=== PATIENT | male | born 1985 | race Caucasian/White ===

== ENCOUNTER 2018-03-18 05:10 | Emergency (ER) | payer SELFPAY ==
[~2018-03-18] VITALS: Ht 177.8 cm; Wt 83.1 kg
[2018-03-18 05:12] VITALS: Ht 177.8 cm; Wt 83.1 kg
[2018-03-18] MEDS ORDERED: SOD CHLORIDE 0.9% 830 ML IV ONE (05:30)
[2018-03-18] MEDS ORDERED: SOD CHLORIDE 0.9% 1,000 ML IV STA (06:17)
[2018-03-18] MEDS ORDERED: INSULIN LISPRO 100 UNIT/ML VIAL SC ONE (06:30)
[2018-03-18] MEDS ORDERED: HYDROmorphONE 1 MG/ML SYG IV STA ×2 (07:11→10:04)
[2018-03-18] MEDS ORDERED: ONDANSETRON 4 MG INJ IV STA ×2 (07:11→10:04)
[2018-03-18] MEDS ORDERED: INSU100C SQ (07:42)
[2018-03-18] MEDS ORDERED: ESCI10TA PO (07:43)
[2018-03-18] MEDS ORDERED: BUSP10TA2 PO (07:43)
[2018-03-18] MEDS ORDERED: LANT3I SC (07:43)
[2018-03-18] MEDS ORDERED: LIPA1CAP4 PO (07:43)
[2018-03-18] MEDS ORDERED: QUET300T2 PO (07:44)
[2018-03-18] MEDS ORDERED: ZOLP10TA PO (07:44)
[2018-03-18] MEDS ORDERED: SOD CHLORIDE 0.9% 100 ML ONE (07:45)
[2018-03-18] MEDS ORDERED: IOHEXOL 300MG/ML 150 ML BTL ONE (07:45)
[2018-03-18] MEDS ORDERED: HYDR-3980 PO (10:58)
[2018-03-18 11:01] VITALS: BP 145/67; PULSE 104; RESP 17
--- NOTE | 2018-04-08 20:35 | ERD ---
ER Documentation Chief Complaint Chief Complaint ABD PAIN, NO N/V/D/C;TODAY ; HYPERGLYCEMIA 500 AT HOME; TOOK 10 U INSULIN HPI This is a 32-year-old male who is diabetic and has not taken his insulin yesterday but did take some prior to arrival. He says his blood sugar was 500 house. He said he woke up with some periumbilical pain that is crampy but no nausea vomiting or diarrhea no recent trauma or illness. Patient has a history of splenectomy with partial pancreas removal. No back pain hematuria. Patient says is not very good at taking his insulin and frequently forgets ROS All systems reviewed and are negative except as per history of present illness. Medications Home Meds Active Scripts Hydrocodone/Acetaminophen ([place] 10-325 Tablet) 1 Each Tablet, 1 TAB PO Q6H PRN for PAIN, #7 TAB Prov:ADELINA ATKINS DO 03/18/18 Reported Medications Zolpidem Tartrate* (Ambien*) 10 Mg Tablet, 10 MG PO QHS PRN for INSOMNIA, TAB 03/18/18 Quetiapine Fumarate* (Seroquel*) 300 Mg Tablet, 300 MG PO HS, TAB 03/18/18 Buspirone Hcl* (Buspirone Hcl*) 10 Mg Tab, 10 MG PO BID, TAB 03/18/18 Escitalopram Oxalate* (Lexapro*) 10 Mg Tablet, 10 MG PO DAILY, #30 TAB 03/18/18 Dnaoui-Ydmbsfas-Oquzvqc* (Naheed DR* 12,000) 12,000 L-38,000-60,000 Unit Capsule.dr, 1 CAP PO WITH MEALS, CAP 03/18/18 Insulin Glargine* (Lantus*) 100 Unit/Ml Soln, 20 UNIT SC BID, #1 VIAL 03/18/18 Insulin Lispro (Humalog) 100 Unit/1 Ml Cartridge, 2-10 UNIT SQ AC A, EA 03/18/18 Allergies Allergies: Coded Allergies: metoclopramide (Verified Allergy, Unknown, 03/18/18) piperacillin (Verified Allergy, Unknown, 03/18/18) tazobactam (Verified Allergy, Unknown, 03/18/18) PMhx/Soc History of Surgery: Yes (Gall bladder, Splenectomy, partial pancreas, Laminectomy L4-5) Anesthesia Reaction: No Hx Neurological Disorder: No Hx Respiratory Disorders: No Hx Cardiac Disorders: No Hx Psychiatric Problems: Yes (Major Depressive Disorder w/Hx of SI) Hx Miscellaneous Medical Probl: Yes (DM) Hx Alcohol Use: No Hx Substance Use: Yes (Quit Meth x3 2014) Hx Tobacco Use: Yes Smoking Status: Current every day smoker FmHx Family History: No coronary disease Physical Exam Physical Exam Const: Well-developed, well-nourished Head: Atraumatic, normocephalic Eyes: Normal Conjunctiva, PERRLA, EOMI, normal sclera, no nystagmus ENT: Normal External Ears, Nose and Mouth, moist mucus membranes. Neck: Full range of motion. No meningismus, no lymphadenopathy. Resp: Clear to auscultation bilaterally, no wheezing, rhonchi, rales Cardio: Regular rate and rhythm, no murmurs, S1 S2 present Abd: Soft, mild periumbilical tenderness, non distended. Normal bowel sounds, no guarding or rebound, no pulsitile abdominal masses or bruits Skin: No petechiae or rashes, no ecchymosis , no maculopapular rash Back: No midline or flank tenderness Ext: No cyanosis, or edema, FROM x 4, normal inspection, neurovascularly intact x 4 Neur: Awake and alert, STR 5/5 x 4, sensation intact x 4, no focal findings, cerebellum intact Psych: Normal Mood and Affect Results 24 hrs Laboratory Tests Test 03/18/18 05:18 03/18/18 05:22 03/18/18 05:30 03/18/18 05:45 Bedside Glucose 470 mg/dL White Blood 7.7 10^3/ul Count Red Blood Count 3.55 10^6/ul Hemoglobin 8.9 g/dl Hematocrit 27.5 % Mean Corpuscular 77.5 fl Volume Mean Corpuscular 25.1 pg Hemoglobin Mean Corpuscular 32.4 g/dl Hemoglobin Marisa nt Red Cell 19.2 % Distribution Width Platelet Count 564 10^3/UL Mean Platelet 9.1 fl Volume Immature 0.400 % Granulocytes % Neutrophils % 70.8 % Lymphocytes % 18.8 % Monocytes % 8.0 % Eosinophils % 1.2 % Basophils % 0.8 % Nucleated Red 0.0 /100WBC Blood Cells % Immature 0.030 10^3/ul Granulocytes # Neutrophils # 5.4 10^3/ul Lymphocytes # 1.4 10^3/ul Monocytes # 0.6 10^3/ul Eosinophils # 0.1 10^3/ul Basophils # 0.1 10^3/ul Nucleated Red 0.0 10^3/ul Blood Cells # Blood Gas Blood venous Specimen Source Arterial Blood 03/18/2018 7:31: Date Drawn 26 AM Arterial Blood VENOUS LINE Gas Puncture Site Kirill Test N/A Venous Blood pH 7.423 Venous Blood 46.4 mmHG pCO2 (Temp Corrected) Venous Blood pO2 39.0 mmHG (Temp Corrected) Venous Blood 29.6 mmol/L HCO3 Venous Blood 72.6 mmHG Oxygen Saturation Venous Blood 4.6 mmol/L Base Excess Venous Blood 10.0 g/dl Total Hemoglobin Venous Blood 70.6 % Oxyhemoglobin Venous Blood 0.3 % Methemoglobin Carboxyhemoglobi 2.5 % n Blood Gas 37.0 C Temperature Blood Gas Actual 20 Respiration Rate Blood Gas ROOM AIR Modality FiO2 21.0 % Blood Gas JUAN PABLO RT Notified Whom Blood Gas 03/18/2018 7:40: Notified Time 27 AM Sodium Level 134 mmol/L Potassium Level 4.9 mmol/L Chloride Level 92 mmol/L Carbon Dioxide 27 mmol/L Level Anion Gap 15 Blood Urea 11 mg/dl Nitrogen Creatinine 0.63 mg/dl Est Glomerular > 60 mL/min Filtrat Rate mL/min Glucose Level 527 mg/dl Calcium Level 9.7 mg/dl Phosphorus Level 3.8 mg/dl Magnesium Level 1.7 mg/dl Urine Color COLORLESS Urine Clarity CLEAR Urine pH 6.0 Urine Specific 1.018 [place] Urine Ketones NEGATIVE mg/dL Urine Nitrite NEGATIVE mg/dL Urine Bilirubin NEGATIVE mg/dL Urine NEGATIVE mg/dL Urobilinogen Urine Leukocyte NEGATIVE Norah/ul Esterase Urine 2 /HPF Microscopic RBC Urine 0 /HPF Microscopic WBC Urine Hemoglobin 1+ mg/dL Urine Glucose 3+ mg/dL Urine Total NEGATIVE mg/dl Protein Test 03/18/18 06:49 Bedside Glucose 292 mg/dL Current Medications Medications Dose Sig/[place] Start Time Status Last (Trade) Ordered Route PRN Stop Time Admin Dose Reason Admin Sodium 830 ml @ ONCE ONCE 03/18/18 DC 03/18/18 Chloride 830 mls/hr IV 05:30 06:07 03/18/18 06:29 Sodium 1,000 ml @ Q1H STAT 03/18/18 DC 03/18/18 Chloride 1,000 mls/hr IV 06:17 06:52 03/18/18 07:16 Insulin 12 unit ONCE ONCE 03/18/18 DC Human SC 06:30 Lispro 03/18/18 06:31 (Humalog) 1 mg ONCE STAT 03/18/18 DC 03/18/18 Hydromorphone IV 07:11 07:23 HCl 03/18/18 07:12 (Dilaudid) Ondansetron 4 mg ONCE STAT 03/18/18 DC 03/18/18 HCl (Zofran IV 07:11 07:23 Inj) 03/18/18 07:12 IV Flush 10 ml STK-MED 03/18/18 DC 03/18/18 (NS 10 ml) ONCE .ROUTE 07:45 07:54 03/18/18 07:46 Sodium 100 ml @ ud STK-MED 03/18/18 DC 03/18/18 Chloride ONCE .ROUTE 07:45 07:54 03/18/18 07:46 Iohexol 150 ml STK-MED 03/18/18 DC 03/18/18 (Omnipaque ONCE .ROUTE 07:45 07:55 300mg/ ml) 03/18/18 07:46 1 mg ONCE STAT 03/18/18 DC 03/18/18 Hydromorphone IV 10:04 10:11 HCl 03/18/18 10:07 (Dilaudid) Ondansetron 4 mg ONCE STAT 03/18/18 DC 03/18/18 HCl (Zofran IV 10:04 10:10 Inj) 03/18/18 10:07 Procedures/MDM Ordering MD: ADELINA ATKINS DO Location: E/R Room/Bed: PROCEDURE: CT Abdomen and pelvis with contrast. CLINICAL INDICATION: Mid and upper abdominal pain TECHNIQUE: CT scan of the abdomen and pelvis with contrast was performed on a multidetector high-resolution CT scan. The patient was scanned following the uncomplicated intravenous administration of 100 ml Omnipaque-300. Coronal and sagittal reformatted images were obtained from the axial source images. Standard CT of the abdomen pelvis with contrast protocols were performed. The total exam CTDI equals 11.83 mGy and the total exam DLP equals 817.74 mGy- cm. One or more of the following dose reduction techniques were used: - Automated exposure control. - Adjustment of the mA and/or kV according to patient size. Use of iterative reconstruction technique. Dicom images are available COMPARISON: None. FINDINGS: Status post prior cholecystectomy. Mild dilation central intra and extrahepatic biliary ductal system consistent postsurgical changes. Surgical sutures seen in the central posterior upper abdomen and the left upper abdomen. Pancreas is poorly demonstrated but no definite masses in the pancreatic bed. Hepatic fatty infiltration without focal hepatic lesions. The stomach is distended with fluid air and ingested material. A definite spleen is not visualized and rule out splenectomy. Small bowel and appendix are unremarkable. Retained feces throughout the large bowel suggesting constipation. The colon is otherwise unremarkable. Adrenal glands unremarkable. The kidneys are normal in size with numerous bilateral renal cysts. Multiple small left renal nonobstructing calcified calculi the largest measuring 3 mm. 2 mm nonobstructing right renal calcified calculus. No other renal calcified calculi. No evidence ureteral calcified calculi or dilatation. Urinary bladder unremarkable. Prostate unremarkable. No evidence of intra-abdominal free air, free fluid, abscesses or lymphadenopathy. Aorta unremarkable. Mild anasarca. Lung bases unremarkable. Degenerative changes lower thoracic and lumbar spine without acute osseous findings are osteoblastic/osteolytic lesions. IMPRESSION: 1. Status post cholecystectomy. Mild biliary ductal dilation consistent postsurgical changes. 2. Poorly demonstrated pancreas with no definite pancreatic masses. 3. Changes in the left upper quadrant of the abdomen suggestive of splenectomy. Recommend clinical correlation. 4. Distended stomach as described above but otherwise unremarkable. No bowel obstruction. No evidence of diverticulitis or appendicitis. 5. Multiple small non-obstructing left renal calcified calculi the largest measuring 3 mm. 2 mm nonobstructing right renal calcified calculus. Numerous bilateral renal cysts. No obstructive uropathy bilaterally. 7. Mild anasarca. RPTAT:AAJJ Physician Danuta Date Time Electronically viewed and signed by Physician Danuta on 03/18/2018 08:12 BM/ CC: ADELINA ATKINS DO [id number] Patient received some insulin here and IV fluids. His heart rate did come down to an acceptable range. No acute pathology on CAT scan. The patient was discharged home after extensive discussion with him about how he must take care of himself and eat proper diabetic diet take his insulin otherwise he can risk going into DKA. Patient says he understands instructions Departure Diagnosis: Primary Impression: Hyperglycemia Additional Impression: Abdominal pain Abdominal location: lower abdomen, unspecified Qualified Codes: R10.30 - Lower abdominal pain, unspecified Condition: Stable Patient Instructions: Abdominal Pain, Hyperglycemia (High Blood Sugar) ADELINA ATKINS DO Apr 08, 2018 20:35
== END 2018-03-18 11:05 | disposition home or self-care (01) ==
LOC: E/R 05:10
DX: E11.65 Type 2 diabetes mellitus with hyperglycemia (principal); F17.210 Nicotine dependence, cigarettes, uncomplicated; Z79.4 Long term (current) use of insulin
CPT/HCPCS: 36415; 74177; 80048; 81001; 82803; 82962; 83735; 84100; 85025; J1170; J2405; J7030; Q9967; 96374; 96375; 96376; J1815